=== PATIENT | male | born 1940 | race Caucasian/White ===

== ENCOUNTER 2021-03-25 13:31 | Inpatient (IN) | payer MEDICARE, SELFPAY ==
--- NOTE | ~2021-03-25 | CT_ITS ---
EXAMINATION: CT abdomen pelvis wo con DATE: 03/25/2021 18:54 INDICATION: Abdomen pain TECHNIQUE: Computed tomography (CT) of the abdomen and pelvis was performed without intravenous contr ast. The dose-length product was 664.35 mGy-cm. Automated exposure control and iterative reconstructi on technique were employed. COMPARISON: None. FINDINGS: There is dependent atelectasis. Heart size normal. No significant pleural or pericardial ef fusion. There are calcifications of the pancreas, consistent with chronic pancreatitis. Gallbladder i s present. The liver, spleen, adrenal glands and left kidney are unremarkable. There is a 3.4 cm righ t renal cyst. There is atherosclerosis and mild ectasia of the aorta and iliac arteries without evide nce for aneurysm. There is marked distention of the bladder. There are bladder stones. Prostate gland is enlarged. Colonic diverticulosis without evidence for diverticulitis. Moderate gas in the colon. Normal appendix. Status post spinal fusion at L2-L5. Moderate lumbar spondylosis. 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 No free air or free fluid. No lymphadenopathy. IMPRESSION: 1. Marked bladder distention, likely secondary to outlet obstruction from enlarged prostate gland. Bl adder stones. Reviewed, dictated and finalized at location A. LE CHIPPER IMPRESSION: 1. Marked bladder distention, likely secondary to outlet obstruction from enlar ged prostate gland. Bladder stones.
--- NOTE | ~2021-03-25 | MR_ITS ---
EXAMINATION: MR MRCP wo/w con/w 3D wo ind DATE: 03/29/2021 11:25 INDICATION: Acute pancreatitis. Fever. TECHNIQUE: Magnetic resonance imaging (MRI) of the abdomen was performed without and with 17 mL Multi Tania intravenous contrast. Sequences included coronal T2-weighted FS FSE, coronal T2-weighted FSE, a xial T1-weighted LAVA, coronal FS FIESTA, axial dual-echo T1-weighted SPGR, coronal lava-FLEX, sagitt al T2-weighted FSE, axial T2-weighted FSE, and axial DWI. Thick-slab T2-weighted FSE images were obta ined for magnetic resonance cholangiopancreatography (MRCP). Maximum intensity projection 3-D reconst ructions of the volumetric data were created by the technologist. Postcontrast sequences included cor onal LAVA-flex and time course of axial T1-weighted LAVA. COMPARISON: CT abdomen and pelvis 03/25/21, lumbar spine MRI 08/22/2016 FINDINGS: ABDOMEN MRI: There is diffuse hepatic steatosis. The gallbladder, spleen, and adrenal glands are norm al. There is mild fat stranding around the pancreas. There are multiple cystic lesions in the pancrea s measuring up to 14 mm, likely pseudocysts. There are dilated pancreatic duct sidechains, consistent with chronic pancreatitis. There are cysts in the kidneys measuring up to 3.5 cm on the right. There are no dilated loops of bowel. There is diverticulosis of the colon without evidence of diverticulit is. There are changes of posterior fusion procedure in lumbar spine. There are changes of laminectomy with chronic 3.4 x 2.6 x 8.4 cm fluid collection in the postsurgical bed, consistent with seroma. ABDOMEN MRCP: The common duct is normal and measures 3 mm. No choledocholithiasis. IMPRESSION: 1. Acute interstitial pancreatitis superimposed on chronic pancreatitis. 2. Diffuse hepatic steatosis. Reviewed, dictated and finalized at location A. NT LEGAL ASSISTANT
--- NOTE | ~2021-03-25 | US_ITS ---
US right upper quadrant INDICATION: Abdomen pain PROCEDURE: Realtime right upper abdominal ultrasound. COMPARISON: No prior studies for comparison. FINDINGS: The pancreas is normal without focal mass or pancreatic ductal dilation. Liver echotexture is normal without focal mass or intrahepatic biliary dilatation. There is normal directional flow i n the portal vein. The gallbladder is normal without stones, gallbladder wall thickening or pericholecystic fluid. Comm on bile duct measures 4 mm. No sonographic Vaz's sign. IMPRESSION: 1: Normal limited abdominal ultrasound. Reviewed, dictated and finalized at location A. ING WEASAND
[2021-03-25 13:47] VITALS: BP 125/52; PULSE 68; RESP 18; TEMP 36.6; O2SAT 98
--- NOTE | 2021-03-25 14:10 | PC.NURSE ---
Called lab and spoke to Shayy to add on trop Baseline
[2021-03-25 14:13] LABS: Basophils Absolute Auto 0.1 K/mm3 (0.0-0.1); Basophils Percent Auto 0.9 % (0.2-1.2); Eosinophils Absolute Auto 0.4 K/mm3 (0-0.3); Eosinophils Percent Auto 3.8 % (0-4.4); Hematocrit 42.5 % (42.0-52.0); Hemoglobin 13.6 g/dL (14.0-18.0); Immature Granulocyte Absolute 0.03 K/mm3 (0.00-0.031); Immature Granulocyte Percent A 0.3 % (0-0.5); Lymphocytes Percent Auto 10.8 % (18.3-44.2); Mean Corpuscular Hemoglobin 31.9 pg (26-34); Mean Corpuscular Volume 99.5 fl (80-100); Mean Platelet Volume 9.2 fl (7.4-10.4); Monocytes Absolute Auto 1.1 K/mm3 (0.1-0.6); Monocytes Percent Auto 10.4 % (2.6-8.5); Neutrophils Absolute Auto 7.5 K/mm3 (1.3-6.7); Neutrophils Percent Auto 73.8 % (45.5-73.1); Platelet Count Result 301 k/mm3 (150-375); Red Blood Count 4.27 M/mm3 (4.6-6.20); Red Cell Distribution Width 13.8 % (11.5-14.5); White Blood Count 10.2 K/mm3 (4.5-10.0)
[2021-03-25 14:18] LABS: Add Urine Microscopic? YES; Appearance Urine Clear (Clear); Bilirubin Urine Negative (Negative); Blood Urine Negative (Negative); Color Urine Yellow (Yellow); Glucose Urine UA 1+ mg/dL (Negative); Ketones Urine Negative (Negative); Leukocyte Esterase Ur Negative LEU/UL (Negative); Mucus Urine Rare /lpf; Nitrate Urine Negative (Negative); Protein Urine Negative (Negative); RBC Urine 0-2 /hpf (0-2); Specific Grav Ur 1.016 (1.001-1.035); Squamous Epithelial Cell Urine Rare /hpf (Few); Urobilinogen Urine Negative mg/dL (<2.0); WBC Urine 0-3 /hpf
[2021-03-25 14:22] LABS: Lactic Acid Reflex 1.9 mmol/L (0.7-2.1)
--- NOTE | 2021-03-25 14:28 | ECG_ITS ---
Measurements Intervals [place] Rate: 64 P: 66 NH: 168 QRS: 50 QRSD: 96 T: 59 QT: 399 QTc: 414 Interpretive Statements SINUS RHYTHM EARLY PRECORDIAL R/S TRANSITION BASELINE WANDER- II, III, AVF BORDERLINE ECG Electronically Signed On 03-25-2021 17:39:06 PATTERNMAKER SAMPLE by Stuart Ardon D.O.
[2021-03-25 14:34] LABS: Troponin I < 0.012 ng/mL (0.000-0.034)
[2021-03-25 14:43] LABS: Alanine Aminotransferase 23 U/L (4-50); Albumin Level 4.7 g/dL (3.5-5.1); Alkaline Phosphatase 124 U/L (38-126); Anion Gap 8 mmol/L (8-16); Aspartate Amino Transferase 29 U/L (17-59); Bilirubin,Total 0.3 mg/dL (0.2-1.3); Blood Urea Nitrogen 11 mg/dL (9-20); Calcium 10.1 mg/dL (8.4-10.2); Carbon Dioxide 27 mmol/L (22-30); Chloride 102 mmol/L (98-107); Estimated CRCL calculation 77 ml/min; Estimated Glomerular Filt Rate > 60; Glucose 145 mg/dL (65-110); Potassium 4.5 mmol/L (3.4-5.0); Sodium 137 mmol/L (137-145)
[2021-03-25 15:06] LABS: Lipase 12601 U/L (23-300)
--- NOTE | 2021-03-25 15:16 | ED.ABDPAIN ---
HPI - Abdominal Pain General Chief Complaint: Abdominal Pain Stated Complaint: abd pain Time Seen by Provider: 03/25/21 13:50 History of Present Illness HPI narrative: Patient is an 80-year-old male who presents ER with epigastric and chest discomfort. Reports last night he is going to bed he started having acid reflux going into his chest. Symptoms persisted today. Unsure that eating any food worsens his pain. Reports its fullness/pressure that he is feeling. No dyspnea. Has not had similar symptoms previously. Related Data Home Medications Medication Instructions Recorded Confirmed albuterol sulfate 90 mcg/actuation 2 inhalation INHALATION Q4H PRN gm 05/03/19 03/25/21 aerosol inhaler Allergies Allergy/AdvReac Type Severity Reaction Status Date / Time ibuprofen Allergy Unknown stomach Verified 03/25/21 18:04 bleeding naproxen Allergy Unknown stomach Verified 03/25/21 18:04 bleeding Review of Systems Review of Systems: All systems reviewed & are unremarkable except as noted in HPI and below Constitutional: Constitutional: Denies chills, Denies fever(s) and Denies weakness ENT: Denies dizziness and Denies sore throat Cardiovascular: Cardiovascular: Reports chest pain, Denies rapid heart rate and Denies radiating jaw, neck or arm pain Respiratory: Respiratory: Denies cough, Denies dyspnea and Denies wheezing Gastrointestinal: Gastrointestinal: Reports abdominal pain, Denies diarrhea, Reports nausea and Denies vomiting Musculoskeletal: Musculoskeletal: Denies back pain and Denies muscle cramps PMFSH Past Medical History Medical History (Updated 03/25/21 @ 23:59 by Jorge Fleming MD) Chronic anemia Chronic insomnia COPD mixed type Dyslipidemia Erectile dysfunction Tobacco dependence Type 2 diabetes mellitus without complication, without long-term current use of insulin Surgical History Surgical History (Updated 03/25/21 @ 21:45 by Velia Jacques PA-C) History of arthroscopy of both knees History of spinal surgery History of tonsillectomy Family History Family History Father Diabetes mellitus Mother Diabetes mellitus Sibling Family history of malignant neoplasm of stomach Other Family history of arthritis Social History Social History (Updated 03/25/21 @ 21:46 by Velia Jacques PA-C) Social History: Surrogate decision maker: Pao Leos, daughter. Code status: Full code. Years smoked: 60 Smoking status: Current every day smoker Tobacco type: cigarettes Second hand tobacco smoke exposure: No Alcohol intake: current Drinks per week: 3 Substance use: never Substance use type: does not use Additional living arrangements comments: The patient lives in [place]. Additional occupation/education comments: Retired. Exam Narrative: GENERAL: Well-appearing, well-nourished, and in no acute distress. HEAD: Normocephalic, atraumatic. EYES: PERRLA and EOMI. CHEST: Clear to auscultation. No respiratory distress. HEART: Regular rate and rhythm. Normal peripheral pulses. ABDOMEN: Soft, mild epigastric and right upper quadrant tenderness, nondistended. EXTREMITIES: Normal range of motion. No edema. SKIN: Warm, dry, no rash. NEURO: No focal deficits. Alert and oriented x3. PSYCH: Normal mood and affect. Course Course Emergency Course: Admit for observation. N.p.o. with fluids. Vital Signs Vital signs: Vital Signs Temperature 97.8 F 03/25/21 13:47 Pulse Rate 68 03/25/21 13:47 Respiratory Rate 18 03/25/21 13:47 Blood Pressure 125/52 L 03/25/21 13:47 Pulse Oximetry 98 03/25/21 13:47 Temperature 98.1 F 03/25/21 22:00 Pulse Rate 62 03/25/21 22:00 Respiratory Rate 20 03/25/21 22:00 Blood Pressure 132/56 L 03/25/21 22:00 Pulse Oximetry 99 03/25/21 22:00 MDM - Abdominal Pain Lab Data Result diagrams: 03/25/21 14:05
[2021-03-25 16:03] VITALS: BP 136/89; PULSE 74; RESP 16; O2SAT 98
--- NOTE | 2021-03-25 17:00 | PM.IMHP ---
H&P: HPI History of Present Illness Date/Time: 03/25/21 17:00 Chief Complaint: Abdominal pain. Narrative: This is a very pleasant 80-year-old male with with diabetes, GERD, hyperlipidemia, and history of anemia presented to the emergency department earlier today for evaluation of abdominal pain. He had some salami and cheese last evening and not long thereafter he developed a burning discomfort in his chest which he thought was probably related to GERD as he will have similar symptoms a couple of times a week though nothing nearly this severe. Since that time it has been constant and he is now feeling more pressure and distension in the abdomen. He had some chills last night but he denies sweats and fever. He has not had any nausea or vomiting. He had a loose stool last night though that was otherwise unremarkable. In the emergency room today he was found to have a lipase of 12,601 and a subsequent unremarkable right upper quadrant ultrasound. He has no personal or family history of pancreatitis, gallbladder disease, or peptic ulcers. He has never had similar symptoms in the past. The patient drinks alcohol rarely and in moderation. He is on a statin for hyperlipidemia though he believes his triglycerides have always been within normal limits. He has not had any recent change in medications. Review of Systems Review of Systems: Twelve systems were reviewed. No recent cold or flu symptoms. He denies sick contacts. No chest pain or shortness of breath. No cough. No dysuria, urgency, or hesitancy. He does not check his glucose at home very often. No blurry vision, polydipsia, or polyuria. Except as documented, all other systems were reviewed and are negative. [facility] Past Medical History Medical History (Updated 03/25/21 @ 21:49 by Velia Jacques PA-C) Chronic anemia Chronic insomnia COPD mixed type Dyslipidemia Erectile dysfunction Tobacco dependence Type 2 diabetes mellitus without complication, without long-term current use of insulin Surgical History Surgical History (Updated 03/25/21 @ 21:45 by Velia Jacques PA-C) History of arthroscopy of both knees History of spinal surgery History of tonsillectomy Family History Family History Father Diabetes mellitus Mother Diabetes mellitus Sibling Family history of malignant neoplasm of stomach Other Family history of arthritis Social History Social History (Updated 03/25/21 @ 21:46 by Velia Jacques PA-C) Social History: Surrogate decision maker: Pao Leos, daughter. Code status: Full code. Years smoked: 60 Smoking status: Current every day smoker Tobacco type: cigarettes Second hand tobacco smoke exposure: No Alcohol intake: current Drinks per week: 3 Substance use: never Substance use type: does not use Additional living arrangements comments: The patient lives in [place]. Additional occupation/education comments: Retired. Meds Home Medications and Allergies Home Medications Medication Instructions Recorded Confirmed Type albuterol sulfate 90 mcg/actuation 2 inhalation INHALATION Q4H PRN gm 05/03/19 03/25/21 History aerosol inhaler umeclidinium 62.5 mcg-vilanterol 1 inh INHALATION DAILY #60 ea 04/19/20 03/25/21 Rx 25 mcg/actuation powdr for inhalation atorvastatin 10 mg tablet 10 mg PO DAILY #90 tablet 08/02/20 03/25/21 Rx umeclidinium 62.5 mcg/actuation See Rx Instructions .ROUTE 08/29/20 03/25/21 Rx blister powder for inhalation .COMPLEX #90 disk metformin 500 mg tablet,extended See Rx Instructions .ROUTE 10/24/20 03/25/21 Rx release 24 hr .COMPLEX #270 tablet famotidine 20 mg tablet 20 mg PO DAILY #90 tablet 10/26/20 03/25/21 Rx acetaminophen 300 mg-codeine 30 mg 1 tablet PO Q6H PRN #90 tablet 11/20/20 03/25/21 Rx tablet ferrous sulfate 325 mg (65 mg 325 mg PO BID #180 tablet 02/09/21 03/25/21 Rx iron) tablet Allergi
[2021-03-25 17:49] VITALS: BP 143/67; PULSE 63; RESP 17; O2SAT 100
--- NOTE | 2021-03-25 17:55 | ADMGEN ---
This patient, Suleman Rosales, was admitted to 2 Medical Room 240-. Patient/family oriented to hospital policies and general routines including ID bracelet, bed and alarms, visiting hours, pain management, procedures, bathroom and other care routines, personal items, smoking policy, room service/diet, and visiting hours. Information on how to activate the Rapid Response Team has been discussed. Patient/Family are encouraged to report perceived risks to care and to ask questions if they do not understand what they are told or what they should do.
[2021-03-25 18:09] VITALS: BMI 26.1
[2021-03-25 18:10] VITALS: BP 127/55; PULSE 66; RESP 16; TEMP 35.8; O2SAT 100
[2021-03-25 18:20] VITALS: RESP 16; O2SAT 100
[2021-03-25] MEDS: SODIUM CHLORIDE 0.9% IV 1,000 ML 150 ML IV CONT (19:06)
[2021-03-25] MEDS: MORPHINE SULFATE (*CRX) 2 MG/ML INJ IV PUSH (19:07)
[2021-03-25 22:00] VITALS: BP 132/56; PULSE 62; RESP 20; TEMP 36.7; O2SAT 99
[2021-03-26 00:11] LABS: Glucose Point of Care 96 mg/dl (65-105)
[2021-03-26] MEDS: SODIUM CHLORIDE 0.9% IV 1,000 ML 150 ML IV CONT (03:04)
[2021-03-26 06:00] VITALS: BP 114/52; PULSE 58; RESP 21; TEMP 36.3; O2SAT 100
[2021-03-26 06:06] LABS: Hematocrit 35.9 % (42.0-52.0); Hemoglobin 11.5 g/dL (14.0-18.0); Mean Corpuscular Hemoglobin 31.7 pg (26-34); Mean Corpuscular Volume 98.9 fl (80-100); Mean Platelet Volume 9.5 fl (7.4-10.4); Platelet Count Result 251 k/mm3 (150-375); Red Blood Count 3.63 M/mm3 (4.6-6.20); Red Cell Distribution Width 13.5 % (11.5-14.5); White Blood Count 10.5 K/mm3 (4.5-10.0)
[2021-03-26 06:27] LABS: Alanine Aminotransferase 17 U/L (4-50); Albumin Level 3.7 g/dL (3.5-5.1); Alkaline Phosphatase 98 U/L (38-126); Amylase 525 U/L (30-110); Anion Gap 7 mmol/L (8-16); Aspartate Amino Transferase 22 U/L (17-59); Bilirubin,Total 0.4 mg/dL (0.2-1.3); Blood Urea Nitrogen 8 mg/dL (9-20); Calcium 8.9 mg/dL (8.4-10.2); Carbon Dioxide 24 mmol/L (22-30); Chloride 104 mmol/L (98-107); Estimated CRCL calculation 77 ml/min; Estimated Glomerular Filt Rate > 60; Glucose 121 mg/dL (65-110); Magnesium 2.1 mg/dL (1.6-2.3); Potassium 3.5 mmol/L (3.4-5.0); Sodium 135 mmol/L (137-145); Triglycerides 223 mg/dL (<150)
[2021-03-26 06:29] LABS: Glucose Point of Care 119 mg/dl (65-105)
--- NOTE | 2021-03-26 06:32 | PC.NURSE ---
0600 requested for patient to attempt to void since he hasn't urinated since straight cathed at approx 2210. patient able to void 150cc. informed patient that i would be bladder scanning him and possibly need for another straight cath. patient refuses bladder scan and any further catheterizations. states he will be fine if left alone.
[2021-03-26 07:44] LABS: Lipase 5930 U/L (23-300)
[2021-03-26 08:00] VITALS: BP 110/70; PULSE 62; RESP 18; TEMP 36.3; O2SAT 97
[2021-03-26 08:57] VITALS: RESP 18; O2SAT 97
[2021-03-26] MEDS: TAMSULOSIN HCL 0.4 MG CAPSULE PO (08:57)
[2021-03-26] MEDS: FAMOTIDINE 20 MG/2 ML VIAL IV PUSH ×2 (08:57→20:41)
--- NOTE | 2021-03-26 09:02 | PM.IMPN ---
Progress Note: A&P Assessment and Plan (1) Pancreatitis: Code(s): K85.90 - Acute pancreatitis without necrosis or infection, unspecified Status: Acute Assessment and Plan: Will obtain as CT of the abdomen and pelvis given that this is his 1st bout of pancreatitis. Precipitating etiology is not entirely clear. He drinks alcohol socially and in moderation and gives no personal or family history of pancreatitis. He has not had any new medications added to his regimen for quite some time. He is on low-dose statin for hyperlipidemia and he has never been told that his triglycerides were high, they were 223. Right upper quadrant ultrasound today was unremarkable. Lipase improved from 12,000 to 5930 today. LFTs normal. Continue supportive care with IV fluid rehydration and slowly advance diet, will start clear liquid diet and see how he tolerates it. Will slowly progress to a low-fat diet. Analgesics and antiemetics available if needed. (2) Type 2 diabetes mellitus without complication, without long-term current use of insulin: Code(s): E11.9 - Type 2 diabetes mellitus without complications Status: Acute Assessment and Plan: Hold metformin. Glucose stable at 121 this morning. Initiate sliding scale insulin, Accu-Cheks, and hypoglycemic protocol. (3) Chronic anemia: Code(s): D64.9 - Anemia, unspecified Status: Acute Assessment and Plan: Hemoglobin and hematocrit are stable on review of previous labs. Will continue Ferrous Sulfate upon discharge. Continue monitoring for any blood loss. (4) Dyslipidemia: Code(s): E78.5 - Hyperlipidemia, unspecified Status: Acute Assessment and Plan: Continue statin. LFTs within normal limits. (5) COPD mixed type: Code(s): J44.9 - Chronic obstructive pulmonary disease, unspecified Status: Chronic Assessment and Plan: No acute issues. Continue maintenance inhalers. (6) Tobacco dependence: Code(s): F17.200 - Nicotine dependence, unspecified, uncomplicated Status: Acute Assessment and Plan: Smoking cessation is encouraged. He declines the need for a nicotine patch. (7) Bladder distension: Code(s): N32.89 - Other specified disorders of bladder Status: Acute Assessment and Plan: Patient was found to have 800 cc in his bladder on bladder scan. He was able to urinate some out and bladder scan still showed 500 cc left in bladder. He was straight cathed x1. Continue monitoring with postvoid residuals I will also start Flomax daily for BPH on CT scan and see if it helps with his urination issues Lucio catheter if he continues to retain without any improvement I do recommend following up with a urologist in the next few weeks for further evaluation and testing for BPH Time Spent With Patient Time with patient: 25 - 35 minutes Subjective Date/time seen: 03/26/21 09:02 Interval history: Date of service 03/26/2021: Patient reports feeling better today, only minimal pain does epigastric area. Denies any nausea or vomiting at this time. He states he does have some urinary hesitancy at times at home, but he can usually run some water and drink some more water with relief of his retention. He denies any chest pain, shortness of breath, cough, fever, chills, leg swelling, calf pain, or any other symptoms at this time. Review of Systems Review of Systems: All systems reviewed & are unremarkable except as noted in HPI and below Exam Narrative: General: 80-year-old man laying flat in bed, taking a nap. Appears comfortable. In no acute distress. Skin: No jaundice or cyanosis. Good skin turgor. Neck: Full range of motion. Supple. Respiratory: Lungs are clear to auscultation bilaterally. No wheezing, rales or rhonchi. No bony chest wall tenderness. Cardiovascular: The heart has a regular rate and rhythm without murmur. Lower extremities: No lowe
[2021-03-26] MEDS: HYDROcodone/acetaminophen (*CRX) 5-325 MG TABLET 1 TAB PO (09:06)
[2021-03-26] MEDS: UMECLIDINIUM BROMIDE 62.5 MCG ELLIPTA 1 PUFF INHALATION (09:33)
[2021-03-26] MEDS: SODIUM CHLORIDE 0.9% IV 1,000 ML 85 ML IV CONT (09:48)
[2021-03-26] MEDS: ATORVASTATIN 10 MG TABLET PO (10:16)
[2021-03-26 11:23] LABS: Glucose Point of Care 168 mg/dl (65-105)
[2021-03-26 14:00] VITALS: BP 115/72; PULSE 62; RESP 18; TEMP 36.7; O2SAT 98
[2021-03-26 16:00] VITALS: BP 112/72; PULSE 60; RESP 18; TEMP 36.3; O2SAT 96
[2021-03-26 16:31] LABS: Glucose Point of Care 93 mg/dl (65-105)
[2021-03-26 22:00] VITALS: BP 123/56; PULSE 68; RESP 18; TEMP 37; O2SAT 96
[2021-03-27 00:11] LABS: Glucose Point of Care 124 mg/dl (65-105)
[2021-03-27 05:40] LABS: Basophils Absolute Auto 0.1 K/mm3 (0.0-0.1); Basophils Percent Auto 0.6 % (0.2-1.2); Eosinophils Absolute Auto 0.4 K/mm3 (0-0.3); Eosinophils Percent Auto 3.8 % (0-4.4); Hematocrit 35.8 % (42.0-52.0); Hemoglobin 11.6 g/dL (14.0-18.0); Immature Granulocyte Absolute 0.05 K/mm3 (0.00-0.031); Immature Granulocyte Percent A 0.5 % (0-0.5); Lymphocytes Absolute Auto 1.14 K/mm3 (0.9-3.2); Lymphocytes Percent Auto 10.3 % (18.3-44.2); Mean Corpuscular HGB Conc 32.4 g/dl (32-36); Mean Corpuscular Hemoglobin 31.7 pg (26-34); Mean Corpuscular Volume 97.8 fl (80-100); Mean Platelet Volume 9.6 fl (7.4-10.4); Monocytes Absolute Auto 1.6 K/mm3 (0.1-0.6); Monocytes Percent Auto 14.1 % (2.6-8.5); Neutrophils Absolute Auto 7.9 K/mm3 (1.3-6.7); Neutrophils Percent Auto 70.7 % (45.5-73.1); Platelet Count Result 258 k/mm3 (150-375); Red Blood Count 3.66 M/mm3 (4.6-6.20); Red Cell Distribution Width 13.5 % (11.5-14.5); White Blood Count 11.1 K/mm3 (4.5-10.0)
[2021-03-27 06:00] VITALS: BP 117/54; PULSE 66; RESP 20; TEMP 36.1; O2SAT 98
[2021-03-27 06:31] LABS: Glucose Point of Care 129 mg/dl (65-105)
[2021-03-27 06:51] LABS: Alanine Aminotransferase 15 U/L (4-50); Albumin Level 3.7 g/dL (3.5-5.1); Alkaline Phosphatase 101 U/L (38-126); Anion Gap 7 mmol/L (8-16); Aspartate Amino Transferase 23 U/L (17-59); Bilirubin,Total 0.4 mg/dL (0.2-1.3); Blood Urea Nitrogen 6 mg/dL (9-20); Calcium 9.5 mg/dL (8.4-10.2); Carbon Dioxide 26 mmol/L (22-30); Chloride 107 mmol/L (98-107); Estimated CRCL calculation 61 ml/min; Estimated Glomerular Filt Rate > 60; Glucose 132 mg/dL (65-110); Lipase 1309 U/L (23-300); Magnesium 2.3 mg/dL (1.6-2.3); Sodium 140 mmol/L (137-145)
[2021-03-27] MEDS: FAMOTIDINE 20 MG/2 ML VIAL IV PUSH ×2 (08:34→22:22)
[2021-03-27] MEDS: ATORVASTATIN 10 MG TABLET PO (08:34)
[2021-03-27] MEDS: TAMSULOSIN HCL 0.4 MG CAPSULE PO (08:34)
[2021-03-27] MEDS: UMECLIDINIUM/VILANTEROL 62.5-25 MCG ELLIPTA 1 PUFF INHALATION (10:26)
[2021-03-27] MEDS: UMECLIDINIUM BROMIDE 62.5 MCG ELLIPTA 1 PUFF INHALATION (10:26)
--- NOTE | 2021-03-27 10:27 | PCRCNOTE ---
Window of time for administration has passed. See next scheduled administration.
[2021-03-27 11:32] LABS: Glucose Point of Care 125 mg/dl (65-105)
--- NOTE | 2021-03-27 12:51 | PM.IMPN ---
Progress Note: A&P Assessment and Plan (1) Pancreatitis: Code(s): K85.90 - Acute pancreatitis without necrosis or infection, unspecified Status: Acute Assessment and Plan: This is his 1st bout of pancreatitis. Precipitating etiology is not entirely clear. He drinks alcohol socially and in moderation and gives no personal or family history of pancreatitis. He has not had any new medications added to his regimen for quite some time. He is on low-dose statin for hyperlipidemia and he has never been told that his triglycerides were high, they were 223. Right upper quadrant ultrasound was unremarkable. CT abd/pelv w/ calcifications of the pancreas consistent with chronic pancreatitis. Lipase continues to trend down. LFTs normal. Tolerating full liquids without pain N/V, will try to advance to low fat Analgesics and antiemetics available if needed. (2) Type 2 diabetes mellitus without complication, without long-term current use of insulin: Code(s): E11.9 - Type 2 diabetes mellitus without complications Status: Acute Assessment and Plan: Hold metformin. Glucose stable at 132 this morning. Initiate sliding scale insulin, Accu-Cheks, and hypoglycemic protocol. (3) Chronic anemia: Code(s): D64.9 - Anemia, unspecified Status: Acute Assessment and Plan: Hemoglobin and hematocrit are stable on review of previous labs. Will continue Ferrous Sulfate upon discharge. Continue monitoring for any blood loss. (4) Dyslipidemia: Code(s): E78.5 - Hyperlipidemia, unspecified Status: Acute Assessment and Plan: Continue statin. LFTs within normal limits. (5) COPD mixed type: Code(s): J44.9 - Chronic obstructive pulmonary disease, unspecified Status: Chronic Assessment and Plan: No acute issues. Continue maintenance inhalers. (6) Tobacco dependence: Code(s): F17.200 - Nicotine dependence, unspecified, uncomplicated Status: Acute Assessment and Plan: Smoking cessation is encouraged. He declines the need for a nicotine patch. (7) Bladder distension: Code(s): N32.89 - Other specified disorders of bladder Status: Acute Assessment and Plan: Was found to be retaining >600 cc urine on post void residual. Was straight cathed x1 and started on Flomax. Today his PVR is normal and he denies retention. It seems this has resolved with flomax however will continue to monitor and have patient follow up with urologist on an outpatient basis. Subjective Date/time seen: 03/27/21 12:51 Interval history: Patient reports feeling better today, abdominal pain has resolved. Denies any nausea or vomiting at this time. Yesterday he had some abdominal bloating but states this has resolved. He has been urinating well with no issues. He denies any chest pain, shortness of breath, cough, fever, chills, leg swelling, calf pain, or any other symptoms at this time. Review of Systems Review of Systems: General: Denies fevers, chills Eyes: Denies vision changes or eye pain ENT: Denies nasal congestion or sore throat Respiratory: Denies cough or shortness of breath Cardiovascular: Denies chest pain, palpitations, or lower extremity edema Gastrointestinal: Denies abdominal pain, vomiting, or diarrhea Genitourinary: Denies dysuria or urinary retention Musculoskeletal: Denies back pain or muscle aches Neurological: Denies headache, paraesthesias, or motor weakness Integumentary: Denies rash or other skin lesions Exam Narrative: General: No acute distress, non toxic appearing Eyes: PERRL, no scleral icterus HEENT: NCAT, external ears normal, MMM Respiratory: No respiratory distress, Lungs CTA bilaterally, no wheezing Cardiovascular: RRR, no murmur Abdominal: Soft, nontender, non distended, no rebound or guarding Musculoskeletal: Moves all 4 extremities, no edema Neurological: A/Ox3, speech normal, no facial as
[2021-03-27 14:00] VITALS: BP 116/42; PULSE 73; RESP 18; TEMP 37.4; O2SAT 97
[2021-03-27 16:25] LABS: Glucose Point of Care 143 mg/dl (65-105)
[2021-03-27] MEDS: ACETAMINOPHEN 325 MG TABLET 650 MG PO ×2 (17:52→22:27)
[2021-03-27 19:55] VITALS: BP 136/59; PULSE 96; RESP 20; TEMP 38; O2SAT 100
[2021-03-27 23:52] VITALS: BP 122/48; PULSE 78; RESP 2; TEMP 37.8; O2SAT 97
[2021-03-28 00:15] LABS: Glucose Point of Care 142 mg/dl (65-105)
[2021-03-28 04:50] VITALS: BP 111/52; PULSE 92; RESP 20; TEMP 38; O2SAT 96
[2021-03-28 06:39] LABS: Basophils Absolute Auto 0.1 K/mm3 (0.0-0.1); Basophils Percent Auto 0.3 % (0.2-1.2); Eosinophils Percent Auto 0.1 % (0-4.4); Hematocrit 35.3 % (42.0-52.0); Hemoglobin 11.4 g/dL (14.0-18.0); Immature Granulocyte Percent A 0.6 % (0-0.5); Lymphocytes Absolute Auto 1.09 K/mm3 (0.9-3.2); Lymphocytes Percent Auto 6.4 % (18.3-44.2); Mean Corpuscular HGB Conc 32.3 g/dl (32-36); Mean Corpuscular Hemoglobin 31.1 pg (26-34); Mean Corpuscular Volume 96.4 fl (80-100); Mean Platelet Volume 9.1 fl (7.4-10.4); Neutrophils Absolute Auto 13.7 K/mm3 (1.3-6.7); Neutrophils Percent Auto 80.6 % (45.5-73.1); Platelet Count Result 217 k/mm3 (150-375); Red Blood Count 3.66 M/mm3 (4.6-6.20); Red Cell Distribution Width 13.6 % (11.5-14.5)
[2021-03-28 07:09] LABS: Alanine Aminotransferase 17 U/L (4-50); Albumin Level 3.9 g/dL (3.5-5.1); Alkaline Phosphatase 103 U/L (38-126); Anion Gap 8 mmol/L (8-16); Aspartate Amino Transferase 23 U/L (17-59); Bilirubin,Total 0.5 mg/dL (0.2-1.3); Blood Urea Nitrogen 12 mg/dL (9-20); Carbon Dioxide 22 mmol/L (22-30); Chloride 103 mmol/L (98-107); Estimated CRCL calculation 55 ml/min; Estimated Glomerular Filt Rate > 60; Glucose 171 mg/dL (65-110); Lipase 789 U/L (23-300); Potassium 3.8 mmol/L (3.4-5.0); Sodium 133 mmol/L (137-145)
[2021-03-28 07:27] VITALS: TEMP 38
[2021-03-28] MEDS: ACETAMINOPHEN 325 MG TABLET 650 MG PO (07:27)
[2021-03-28 08:12] LABS: Lactic Acid Reflex 1.5 mmol/L (0.7-2.1)
[2021-03-28] MEDS: TAMSULOSIN HCL 0.4 MG CAPSULE PO (08:13)
[2021-03-28] MEDS: FAMOTIDINE 20 MG/2 ML VIAL IV PUSH ×2 (08:13→20:32)
[2021-03-28] MEDS: ATORVASTATIN 10 MG TABLET PO (08:13)
[2021-03-28] MEDS: UMECLIDINIUM BROMIDE 62.5 MCG ELLIPTA 1 PUFF INHALATION (08:26)
[2021-03-28 08:27] VITALS: TEMP 37.7
[2021-03-28] MEDS: ENOXAPARIN 40 MG/0.4 ML SYRINGE SUB-Q (08:30)
[2021-03-28 09:26] LABS: Glucose Point of Care 156 mg/dl (65-105)
[2021-03-28 11:47] LABS: Glucose Point of Care 160 mg/dl (65-105)
[2021-03-28 12:27] LABS: Add Urine Microscopic? YES; Appearance Urine Cloudy (Clear); Bacteria Urine Trace /hpf; Bilirubin Urine Negative (Negative); Blood Urine 2+ (Negative); Color Urine Yellow (Yellow); Glucose Urine UA Negative (Negative); Ketones Urine Negative (Negative); Leukocyte Esterase Ur 3+ LEU/UL (Negative); Mucus Urine Rare /lpf; Nitrate Urine Positive (Negative); Protein Urine Negative (Negative); Specific Grav Ur 1.012 (1.001-1.035); Squamous Epithelial Cell Urine Rare /hpf (Few); Urobilinogen Urine Negative mg/dL (<2.0); WBC Urine >75 /hpf
--- NOTE | 2021-03-28 12:58 | PM.IMPN ---
Progress Note: A&P Assessment and Plan (1) Pancreatitis: Code(s): K85.90 - Acute pancreatitis without necrosis or infection, unspecified Status: Acute Assessment and Plan: This is his 1st bout of pancreatitis. Precipitating etiology is not entirely clear. He drinks alcohol socially and in moderation and gives no personal or family history of pancreatitis. He has not had any new medications added to his regimen for quite some time. He is on low-dose statin for hyperlipidemia and he has never been told that his triglycerides were high, they were 223. Right upper quadrant ultrasound was unremarkable. CT abd/pelv w/ calcifications of the pancreas consistent with chronic pancreatitis. Lipase continues to trend down. LFTs normal. Tolerating low fat diet without difficulty (2) Type 2 diabetes mellitus without complication, without long-term current use of insulin: Code(s): E11.9 - Type 2 diabetes mellitus without complications Status: Acute Assessment and Plan: Hold metformin. Glucose stable. Initiate sliding scale insulin, Accu-Cheks, and hypoglycemic protocol. (3) Chronic anemia: Code(s): D64.9 - Anemia, unspecified Status: Acute Assessment and Plan: Hemoglobin and hematocrit are stable on review of previous labs. Will continue Ferrous Sulfate upon discharge. Continue monitoring for any blood loss. (4) Dyslipidemia: Code(s): E78.5 - Hyperlipidemia, unspecified Status: Acute Assessment and Plan: Continue statin. LFTs within normal limits. (5) COPD mixed type: Code(s): J44.9 - Chronic obstructive pulmonary disease, unspecified Status: Chronic Assessment and Plan: No acute issues. Continue maintenance inhalers. (6) Tobacco dependence: Code(s): F17.200 - Nicotine dependence, unspecified, uncomplicated Status: Acute Assessment and Plan: Smoking cessation is encouraged. He declines the need for a nicotine patch. (7) Bladder distension: Code(s): N32.89 - Other specified disorders of bladder Status: Acute Assessment and Plan: -Was found to be retaining >600 cc urine on post void residual. Was straight cathed x1 and started on Flomax. -Since then serial bladder scans show that he is no longer retaining and he reports urinating without difficulty -He did spike a fever last night and developed leukocytosis of 17 -Repeat UA shows +nitrites, 3+ leukocytes, and >75 WBCs, pt was started on rocephin pending urine culture (8) UTI (urinary tract infection): Code(s): N39.0 - Urinary tract infection, site not specified Status: Acute Assessment and Plan: -See above -Continue Rocephin Subjective Date/time seen: 03/28/21 12:58 Interval history: Patient reports feeling better today, abdominal pain has resolved. Denies any nausea or vomiting at this time. He has been urinating well with no issues. He denies any chest pain, shortness of breath, cough, fever, chills, leg swelling, calf pain, or any other symptoms at this time. Did spike a fever overnight but states he did not notice. Review of Systems Review of Systems: General: + fevers, denies chills Eyes: Denies vision changes or eye pain ENT: Denies nasal congestion or sore throat Respiratory: Denies cough or shortness of breath Cardiovascular: Denies chest pain, palpitations, or lower extremity edema Gastrointestinal: Denies abdominal pain, vomiting, or diarrhea Genitourinary: Denies dysuria or urinary retention Musculoskeletal: Denies back pain or muscle aches Neurological: Denies headache, paraesthesias, or motor weakness Integumentary: Denies rash or other skin lesions Exam Narrative: General: No acute distress, non toxic appearing Eyes: PERRL, no scleral icterus HEENT: NCAT, external ears normal, MMM Respiratory: No respiratory distress, Lungs CTA bilaterally, no wheezing Cardiovascular:
[2021-03-28 14:30] VITALS: BP 150/43; PULSE 83; RESP 28; TEMP 37.4; O2SAT 98
[2021-03-28 17:29] LABS: Glucose Point of Care 180 mg/dl (65-105)
[2021-03-28 19:23] VITALS: BP 150/51; PULSE 82; RESP 17; TEMP 37.2; O2SAT 97
[2021-03-28 20:00] VITALS: PULSE 82; RESP 17; O2SAT 97
[2021-03-28 21:20] LABS: Glucose Point of Care 178 mg/dl (65-105)
[2021-03-29 03:01] VITALS: BP 121/64; PULSE 79; RESP 17; TEMP 37.3; O2SAT 98
[2021-03-29 06:13] LABS: Basophils Absolute Auto 0.1 K/mm3 (0.0-0.1); Basophils Percent Auto 0.5 % (0.2-1.2); Eosinophils Absolute Auto 0.2 K/mm3 (0-0.3); Eosinophils Percent Auto 1.4 % (0-4.4); Hematocrit 33.5 % (42.0-52.0); Hemoglobin 10.8 g/dL (14.0-18.0); Immature Granulocyte Absolute 0.08 K/mm3 (0.00-0.031); Immature Granulocyte Percent A 0.5 % (0-0.5); Lymphocytes Absolute Auto 1.31 K/mm3 (0.9-3.2); Lymphocytes Percent Auto 8.6 % (18.3-44.2); Mean Corpuscular HGB Conc 32.2 g/dl (32-36); Mean Corpuscular Hemoglobin 31.3 pg (26-34); Mean Corpuscular Volume 97.1 fl (80-100); Mean Platelet Volume 9.5 fl (7.4-10.4); Monocytes Absolute Auto 2.2 K/mm3 (0.1-0.6); Monocytes Percent Auto 14.4 % (2.6-8.5); Neutrophils Absolute Auto 11.3 K/mm3 (1.3-6.7); Neutrophils Percent Auto 74.6 % (45.5-73.1); Platelet Count Result 227 k/mm3 (150-375); Red Blood Count 3.45 M/mm3 (4.6-6.20); Red Cell Distribution Width 13.5 % (11.5-14.5); White Blood Count 15.2 K/mm3 (4.5-10.0)
[2021-03-29 06:29] LABS: Alanine Aminotransferase 15 U/L (4-50); Albumin Level 3.6 g/dL (3.5-5.1); Alkaline Phosphatase 99 U/L (38-126); Anion Gap 5 mmol/L (8-16); Aspartate Amino Transferase 19 U/L (17-59); Bilirubin,Total 0.3 mg/dL (0.2-1.3); Blood Urea Nitrogen 11 mg/dL (9-20); Carbon Dioxide 25 mmol/L (22-30); Chloride 102 mmol/L (98-107); Estimated CRCL calculation 61 ml/min; Estimated Glomerular Filt Rate > 60; Glucose 167 mg/dL (65-110); Lipase 791 U/L (23-300); Potassium 3.7 mmol/L (3.4-5.0); Sodium 132 mmol/L (137-145)
[2021-03-29 07:51] LABS: Glucose Point of Care 150 mg/dl (65-105)
[2021-03-29] MEDS: UMECLIDINIUM/VILANTEROL 62.5-25 MCG ELLIPTA 1 PUFF INHALATION (10:00)
[2021-03-29 10:01] VITALS: O2SAT 96
[2021-03-29] MEDS: FAMOTIDINE 20 MG/2 ML VIAL IV PUSH ×2 (10:21→20:25)
[2021-03-29] MEDS: ENOXAPARIN 40 MG/0.4 ML SYRINGE SUB-Q (10:21)
[2021-03-29] MEDS: ATORVASTATIN 10 MG TABLET PO (11:42)
[2021-03-29] MEDS: TAMSULOSIN HCL 0.4 MG CAPSULE PO (11:43)
[2021-03-29 11:51] LABS: Glucose Point of Care 180 mg/dl (65-105)
--- NOTE | 2021-03-29 13:01 | PM.IMPN ---
Progress Note: A&P Assessment and Plan (1) Pancreatitis: Code(s): K85.90 - Acute pancreatitis without necrosis or infection, unspecified Status: Acute Assessment and Plan: This is his 1st bout of pancreatitis. Precipitating etiology is not entirely clear. He drinks alcohol socially and in moderation and gives no personal or family history of pancreatitis. He has not had any new medications added to his regimen for quite some time. He is on low-dose statin for hyperlipidemia and he has never been told that his triglycerides were high, they were 223. Right upper quadrant ultrasound was unremarkable. CT abd/pelv w/ calcifications of the pancreas consistent with chronic pancreatitis. Lipase continues to trend down. LFTs normal. Tolerating low fat diet without difficulty MRCP today (2) Type 2 diabetes mellitus without complication, without long-term current use of insulin: Code(s): E11.9 - Type 2 diabetes mellitus without complications Status: Acute Assessment and Plan: Hold metformin. Glucose stable. Initiate sliding scale insulin, Accu-Cheks, and hypoglycemic protocol. (3) Chronic anemia: Code(s): D64.9 - Anemia, unspecified Status: Acute Assessment and Plan: Hemoglobin and hematocrit are stable on review of previous labs. Will continue Ferrous Sulfate upon discharge. Continue monitoring for any blood loss. (4) Dyslipidemia: Code(s): E78.5 - Hyperlipidemia, unspecified Status: Acute Assessment and Plan: Continue statin. LFTs within normal limits. (5) COPD mixed type: Code(s): J44.9 - Chronic obstructive pulmonary disease, unspecified Status: Chronic Assessment and Plan: No acute issues. Continue maintenance inhalers. (6) Tobacco dependence: Code(s): F17.200 - Nicotine dependence, unspecified, uncomplicated Status: Acute Assessment and Plan: Smoking cessation is encouraged. He declines the need for a nicotine patch. (7) Bladder distension: Code(s): N32.89 - Other specified disorders of bladder Status: Acute Assessment and Plan: -Was found to be retaining >600 cc urine on post void residual. Was straight cathed x1 and started on Flomax. -Since then serial bladder scans show that he is no longer retaining and he reports urinating without difficulty -He did spike a fever and developed leukocytosis of 17 -Repeat UA shows +nitrites, 3+ leukocytes, and >75 WBCs, pt was started on rocephin pending urine culture -Leukocytosis improving, fever resolved (8) UTI (urinary tract infection): Code(s): N39.0 - Urinary tract infection, site not specified Status: Acute Assessment and Plan: -See above -Continue Rocephin (9) Bacteremia: Code(s): R78.81 - Bacteremia Status: Acute Assessment and Plan: -Prelim blood cultures positive for gram negative bacilli, suspect secondary to UTI -Continue rocephin pending sensitivity report Subjective Date/time seen: 03/29/21 13:01 Interval history: 80-year-old male with with diabetes, GERD, hyperlipidemia, and history of anemia admitted to the hospital for pancreatitis and UTI. Pt with UA suggestive of UTI and positive blood cultures. He complains of R ear pain but has no complaints otherwise. No abdominal pain, N/V. No fever x 24 hours. Review of Systems Review of Systems: General: Denies fevers, denies chills Eyes: Denies vision changes or eye pain ENT: Denies nasal congestion or sore throat, +right ear pain Respiratory: Denies cough or shortness of breath Cardiovascular: Denies chest pain, palpitations, or lower extremity edema Gastrointestinal: Denies abdominal pain, vomiting, or diarrhea Genitourinary: Denies dysuria or urinary retention Musculoskeletal: Denies back pain or muscle aches Neurological: Denies headache, paraesthesias, or motor weakness Integumentary: Denies rash or
--- NOTE | 2021-03-29 13:02 | PC.NURSE ---
Positive blood cultures called to Jaky [facility] [employer]ist
[2021-03-29 13:35] VITALS: BP 96/67; PULSE 73; RESP 18; TEMP 36.4; O2SAT 98
[2021-03-29 16:28] LABS: Glucose Point of Care 185 mg/dl (65-105)
[2021-03-29] MEDS: MORPHINE SULFATE (*CRX) 2 MG/ML INJ IV PUSH (18:06)
[2021-03-29] MEDS: FLUTICASONE PROPIONATE 0.05% NA SPR 16 GM BTL (*BKC) 1 SPRAY NASAL (20:25)
[2021-03-29] MEDS: AMOXICILLIN/CLAVULANATE K 875-125 MG TAB 1 TABLET PO (20:25)
[2021-03-29 21:01] LABS: Glucose Point of Care 191 mg/dl (65-105)
[2021-03-29 22:00] VITALS: BP 122/45; PULSE 77; RESP 18; TEMP 36.3; O2SAT 97
[2021-03-30] MEDS: ACETAMINOPHEN/CODEINE (*CRX) 300/30 MG TABLET 1 TAB PO (00:40)
[2021-03-30] MEDS: MORPHINE SULFATE (*CRX) 2 MG/ML INJ IV PUSH (01:56)
[2021-03-30 06:00] VITALS: BP 107/42; PULSE 88; RESP 18; TEMP 36.5; O2SAT 96
[2021-03-30 06:04] LABS: Basophils Absolute Auto 0.1 K/mm3 (0.0-0.1); Eosinophils Absolute Auto 0.2 K/mm3 (0-0.3); Eosinophils Percent Auto 2.9 % (0-4.4); Hematocrit 35.3 % (42.0-52.0); Hemoglobin 11.3 g/dL (14.0-18.0); Immature Granulocyte Absolute 0.03 K/mm3 (0.00-0.031); Immature Granulocyte Percent A 0.4 % (0-0.5); Lymphocytes Absolute Auto 0.89 K/mm3 (0.9-3.2); Lymphocytes Percent Auto 12.1 % (18.3-44.2); Mean Corpuscular Volume 96.7 fl (80-100); Mean Platelet Volume 9.4 fl (7.4-10.4); Monocytes Percent Auto 13.7 % (2.6-8.5); Neutrophils Absolute Auto 5.1 K/mm3 (1.3-6.7); Neutrophils Percent Auto 69.9 % (45.5-73.1); Platelet Count Result 255 k/mm3 (150-375); Red Blood Count 3.65 M/mm3 (4.6-6.20); Red Cell Distribution Width 13.2 % (11.5-14.5); White Blood Count 7.4 K/mm3 (4.5-10.0)
[2021-03-30 06:11] LABS: Alanine Aminotransferase 17 U/L (4-50); Albumin Level 3.7 g/dL (3.5-5.1); Alkaline Phosphatase 104 U/L (38-126); Anion Gap 10 mmol/L (8-16); Aspartate Amino Transferase 23 U/L (17-59); Bilirubin,Total 0.5 mg/dL (0.2-1.3); Blood Urea Nitrogen 14 mg/dL (9-20); Carbon Dioxide 23 mmol/L (22-30); Chloride 102 mmol/L (98-107); Estimated CRCL calculation 68 ml/min; Estimated Glomerular Filt Rate > 60; Glucose 228 mg/dL (65-110); Lipase 625 U/L (23-300); Potassium 3.5 mmol/L (3.4-5.0); Sodium 135 mmol/L (137-145)
[2021-03-30 07:55] LABS: Glucose Point of Care 186 mg/dl (65-105)
[2021-03-30 09:28] VITALS: RESP 18; O2SAT 95
[2021-03-30] MEDS: AMOXICILLIN/CLAVULANATE K 875-125 MG TAB 1 TABLET PO ×2 (09:28→20:17)
[2021-03-30] MEDS: FLUTICASONE PROPIONATE 0.05% NA SPR 16 GM BTL (*BKC) 1 SPRAY NASAL ×2 (09:28→20:18)
[2021-03-30] MEDS: ATORVASTATIN 10 MG TABLET PO (09:28)
[2021-03-30] MEDS: ENOXAPARIN 40 MG/0.4 ML SYRINGE SUB-Q (09:28)
[2021-03-30] MEDS: FAMOTIDINE 20 MG/2 ML VIAL IV PUSH ×2 (09:28→20:17)
[2021-03-30] MEDS: TAMSULOSIN HCL 0.4 MG CAPSULE PO (09:28)
[2021-03-30] MEDS: UMECLIDINIUM/VILANTEROL 62.5-25 MCG ELLIPTA 1 PUFF INHALATION (10:12)
[2021-03-30 10:14] VITALS: PULSE 60; O2SAT 95
[2021-03-30 11:50] LABS: Glucose Point of Care 189 mg/dl (65-105)
--- NOTE | 2021-03-30 12:25 | PM.IMPN ---
Progress Note: A&P Assessment and Plan (1) Pancreatitis: Code(s): K85.90 - Acute pancreatitis without necrosis or infection, unspecified Status: Acute Assessment and Plan: This is his 1st bout of pancreatitis. Precipitating etiology is not entirely clear. He drinks alcohol socially and in moderation and gives no personal or family history of pancreatitis. He has not had any new medications added to his regimen for quite some time. He is on low-dose statin for hyperlipidemia and he has never been told that his triglycerides were high, they were 223. Right upper quadrant ultrasound was unremarkable. CT abd/pelv w/ calcifications of the pancreas consistent with chronic pancreatitis. Lipase continues to trend down. LFTs normal. Tolerating low fat diet without difficulty MRCP shows acute on chronic pancreatitis, no stones, still unclear etiology (2) Type 2 diabetes mellitus without complication, without long-term current use of insulin: Code(s): E11.9 - Type 2 diabetes mellitus without complications Status: Acute Assessment and Plan: Hold metformin. Glucose stable. Initiate sliding scale insulin, Accu-Cheks, and hypoglycemic protocol. (3) Chronic anemia: Code(s): D64.9 - Anemia, unspecified Status: Acute Assessment and Plan: Hemoglobin and hematocrit are stable on review of previous labs. Will continue Ferrous Sulfate upon discharge. Continue monitoring for any blood loss. (4) Dyslipidemia: Code(s): E78.5 - Hyperlipidemia, unspecified Status: Acute Assessment and Plan: Continue statin. LFTs within normal limits. (5) COPD mixed type: Code(s): J44.9 - Chronic obstructive pulmonary disease, unspecified Status: Chronic Assessment and Plan: No acute issues. Continue maintenance inhalers. (6) Tobacco dependence: Code(s): F17.200 - Nicotine dependence, unspecified, uncomplicated Status: Acute Assessment and Plan: Smoking cessation is encouraged. He declines the need for a nicotine patch. (7) Bladder distension: Code(s): N32.89 - Other specified disorders of bladder Status: Acute Assessment and Plan: -Was found to be retaining >600 cc urine on post void residual. Was straight cathed x1 and started on Flomax. -Since then serial bladder scans show that he is no longer retaining and he reports urinating without difficulty -He did spike a fever and developed leukocytosis of 17 -Repeat UA shows +nitrites, 3+ leukocytes, and >75 WBCs, pt was started on rocephin -Leukocytosis improving, fever resolved -Urine culture w/ Rocephin listed as susceptible (8) UTI (urinary tract infection): Code(s): N39.0 - Urinary tract infection, site not specified Status: Acute Assessment and Plan: -See above -Continue Rocephin (9) Bacteremia: Code(s): R78.81 - Bacteremia Status: Acute Assessment and Plan: -Prelim blood cultures positive for E. Coli, suspect secondary to UTI -Continue Rocephin pending sensitivity report, will contact ID when final report is back to determine next steps Subjective Date/time seen: 03/30/21 12:25 Interval history: 80-year-old male with with diabetes, GERD, hyperlipidemia, and history of anemia admitted to the hospital for pancreatitis and UTI. Pt with UA showing UTI with positive blood cultures. He complains of R ear pain but has no complaints otherwise. No abdominal pain, N/V. No fever x 48 hours. Review of Systems Review of Systems: General: Denies fevers, denies chills Eyes: Denies vision changes or eye pain ENT: Denies nasal congestion or sore throat, +right ear pain Respiratory: Denies cough or shortness of breath Cardiovascular: Denies chest pain, palpitations, or lower extremity edema Gastrointestinal: Denies abdominal pain, vomiting, or diarrhea Genitourinary: Denies dysuria or urinary retention Mus
[2021-03-30 14:00] VITALS: BP 117/52; PULSE 79; RESP 18; TEMP 36.6; O2SAT 96
[2021-03-30 16:41] LABS: Glucose Point of Care 248 mg/dl (65-105)
[2021-03-30] MEDS: INSULIN ASPART (*BKC) 100 UNITS/ML SUB-Q (17:19)
[2021-03-30 21:34] LABS: Glucose Point of Care 219 mg/dl (65-105)
[2021-03-30 22:00] VITALS: BP 140/59; PULSE 74; RESP 18; TEMP 36.1; O2SAT 96
[2021-03-31 06:00] VITALS: BP 119/48; PULSE 63; RESP 20; TEMP 37.2; O2SAT 98
[2021-03-31 07:06] LABS: Basophils Percent Auto 0.8 % (0.2-1.2); Eosinophils Absolute Auto 0.4 K/mm3 (0-0.3); Eosinophils Percent Auto 8.1 % (0-4.4); Hematocrit 33.1 % (42.0-52.0); Hemoglobin 10.7 g/dL (14.0-18.0); Immature Granulocyte Absolute 0.02 K/mm3 (0.00-0.031); Immature Granulocyte Percent A 0.4 % (0-0.5); Lymphocytes Absolute Auto 0.81 K/mm3 (0.9-3.2); Lymphocytes Percent Auto 15.3 % (18.3-44.2); Mean Corpuscular HGB Conc 32.3 g/dl (32-36); Mean Corpuscular Volume 95.9 fl (80-100); Mean Platelet Volume 9.6 fl (7.4-10.4); Monocytes Absolute Auto 1.2 K/mm3 (0.1-0.6); Monocytes Percent Auto 23.4 % (2.6-8.5); Neutrophils Absolute Auto 2.8 K/mm3 (1.3-6.7); Platelet Count Result 271 k/mm3 (150-375); Red Blood Count 3.45 M/mm3 (4.6-6.20); Red Cell Distribution Width 13.2 % (11.5-14.5); White Blood Count 5.3 K/mm3 (4.5-10.0)
[2021-03-31 07:15] LABS: Alanine Aminotransferase 18 U/L (4-50); Albumin Level 3.3 g/dL (3.5-5.1); Alkaline Phosphatase 95 U/L (38-126); Anion Gap 9 mmol/L (8-16); Aspartate Amino Transferase 23 U/L (17-59); Bilirubin,Total 0.2 mg/dL (0.2-1.3); Blood Urea Nitrogen 12 mg/dL (9-20); Calcium 8.7 mg/dL (8.4-10.2); Carbon Dioxide 23 mmol/L (22-30); Chloride 104 mmol/L (98-107); Estimated CRCL calculation 77 ml/min; Estimated Glomerular Filt Rate > 60; Glucose 204 mg/dL (65-110); Lipase 752 U/L (23-300); Potassium 3.4 mmol/L (3.4-5.0); Sodium 136 mmol/L (137-145)
[2021-03-31 08:17] LABS: Glucose Point of Care 174 mg/dl (65-105)
[2021-03-31] MEDS: FAMOTIDINE 20 MG/2 ML VIAL IV PUSH (09:28)
[2021-03-31] MEDS: ENOXAPARIN 40 MG/0.4 ML SYRINGE SUB-Q (09:29)
[2021-03-31] MEDS: TAMSULOSIN HCL 0.4 MG CAPSULE PO (09:29)
[2021-03-31] MEDS: AMOXICILLIN/CLAVULANATE K 875-125 MG TAB 1 TABLET PO (09:29)
[2021-03-31] MEDS: ATORVASTATIN 10 MG TABLET PO (09:29)
[2021-03-31] MEDS: FLUTICASONE PROPIONATE 0.05% NA SPR 16 GM BTL (*BKC) 1 SPRAY NASAL (09:31)
[2021-03-31] MEDS: UMECLIDINIUM/VILANTEROL 62.5-25 MCG ELLIPTA 1 PUFF INHALATION (10:05)
--- NOTE | 2021-03-31 11:47 | PM.DS ---
DS: Admitting Diagnosis Discharge Date 03/31/21 Admitting Diagnosis pancreatitis DS: Discharge Diagnosis Discharge Diagnosis (1) Pancreatitis: Code(s): K85.90 - Acute pancreatitis without necrosis or infection, unspecified Status: Acute Assessment and Plan: This is his 1st bout of pancreatitis. Precipitating etiology is not entirely clear. He drinks alcohol socially and in moderation and gives no personal or family history of pancreatitis. He has not had any new medications added to his regimen for quite some time. He is on low-dose statin for hyperlipidemia and he has never been told that his triglycerides were high, they were 223. Right upper quadrant ultrasound was unremarkable. CT abd/pelv w/ calcifications of the pancreas consistent with chronic pancreatitis. Lipase continues to trend down. LFTs normal. Tolerating low fat diet without difficulty MRCP shows acute on chronic pancreatitis, no stones, still unclear etiology Pt has been symptom free for several days and is tolerating low fat diet without difficulty Stable for discharge at this time. F/u w/ pcp (2) Type 2 diabetes mellitus without complication, without long-term current use of insulin: Code(s): E11.9 - Type 2 diabetes mellitus without complications Status: Acute Assessment and Plan: Held metformin. Glucose stable. Initiated sliding scale insulin, Accu-Cheks, and hypoglycemic protocol. (3) Chronic anemia: Code(s): D64.9 - Anemia, unspecified Status: Acute Assessment and Plan: Hemoglobin and hematocrit are stable compared to prior. Will continue Ferrous Sulfate upon discharge. (4) Dyslipidemia: Code(s): E78.5 - Hyperlipidemia, unspecified Status: Acute Assessment and Plan: Continue statin. LFTs within normal limits. (5) COPD mixed type: Code(s): J44.9 - Chronic obstructive pulmonary disease, unspecified Status: Chronic Assessment and Plan: No acute issues. Continue maintenance inhalers. (6) Tobacco dependence: Code(s): F17.200 - Nicotine dependence, unspecified, uncomplicated Status: Acute Assessment and Plan: Smoking cessation is encouraged. He declines the need for a nicotine patch. (7) Bladder distension: Code(s): N32.89 - Other specified disorders of bladder Status: Acute Assessment and Plan: -Was found to be retaining >600 cc urine on post void residual. Was straight cathed x1 and started on Flomax. -Since then serial bladder scans show that he is no longer retaining and he reports urinating without difficulty -He did spike a fever and developed leukocytosis of 17 -Repeat UA shows +nitrites, 3+ leukocytes, and >75 WBCs, pt was started on rocephin -Leukocytosis improving, fever resolved -Urine culture w/ Rocephin listed as susceptible -Will dc home on Augmentin per discussion with Infectious disease for a total of #10 days of abx tx. (8) UTI (urinary tract infection): Code(s): N39.0 - Urinary tract infection, site not specified Status: Acute Assessment and Plan: -See above (9) Bacteremia: Code(s): R78.81 - Bacteremia Status: Acute Assessment and Plan: -Prelim blood cultures positive for E. Coli, suspect secondary to UTI -Has been on Rocephin which is susceptible -Spoke w/ ID, will transition to Augmentin on discharge for a total of 10 days abx tx DS: Summary Hospital Course Reason for hospitalization: 80-year-old male with with diabetes, GERD, hyperlipidemia, and history of anemia admitted to the hospital for pancreatitis and UTI. Please see HPI for further details. Hospital Course: Please see above for details of hospital course. Time spent discussing smoking cessation with patient: 3 to 10 minutes Status at Discharge Cognitive/behavioral status at discharge: stable Functional status at discharge: independent ambulation Over
[2021-03-31 11:50] LABS: Glucose Point of Care 221 mg/dl (65-105)
[2021-03-31] MEDS: INSULIN ASPART (*BKC) 100 UNITS/ML SUB-Q (11:52)
== END 2021-03-31 14:05 | disposition home or self-care (01) | DRG 439 ==
LOC: ANHED 14:28 → ANH2MED 17:12
PROVIDERS: Physician Assistant; Admitting Provider Family Medicine; Emergency Provider Emergency Medicine; PCP Family Medicine; Visit Provider Physician Assistant
DX: K85.90 Acute pancreatitis without necrosis or infection, unspecified (principal); N39.0 Urinary tract infection, site not specified; R78.81 Bacteremia; B96.20 Unspecified Escherichia coli [E. coli] as the cause of diseases classified elsewhere; N32.89 Other specified disorders of bladder; K86.1 Other chronic pancreatitis; E11.9 Type 2 diabetes mellitus without complications; D64.9 Anemia, unspecified; E78.1 Pure hyperglyceridemia; E78.5 Hyperlipidemia, unspecified; J44.9 Chronic obstructive pulmonary disease, unspecified; F17.210 Nicotine dependence, cigarettes, uncomplicated; K21.9 Gastro-esophageal reflux disease without esophagitis; Z79.84 Long term (current) use of oral hypoglycemic drugs; Z79.899 Other long term (current) drug therapy
CPT/HCPCS: 36415; 74176; 74183; 76376; 76705; 80053; 81001; 82150; 82948; 83605; 83690; 83735; 84478; 84484; 85025; 85027; 87040; 87077; 87086; 87088; 87186; 93005; 94640; 96361; 96374; 96375; 99285; A9270; A9577; G0378; J0696; J1650; J1815; J2270; J7030